=== PATIENT | female | born 1950 | race Caucasian/White ===

== ENCOUNTER 2021-11-04 16:52 | Observation (INO) ==
[2021-11-04 17:36] LABS: Basophils % 0.7 %; Eosinophils # 0.1 K/mcL (0.0-0.6); Eosinophils % 0.8 %; Hematocrit 36.5 % (35.3-44.9); Hemoglobin 11.6 g/dL (11.5-15.4); Immature Granulocytes % 0.3 % (0-4); Lymphocytes # 1.7 K/mcL (0.6-4.6); Lymphocytes % 27.9 %; Mean Corpuscular HGB Conc 31.8 g/dL (31.6-35.5); Mean Corpuscular Hemoglobin 31.4 pg (28.0-33.3); Mean Corpuscular Volume 98.9 fL (83.0-100.0); Mean Platelet Volume 10.4 fL (9.4-12.4); Monocytes # 0.4 K/mcL (0.0-1.3); Monocytes % 6.3 %; Neutrophils # 3.8 K/mcL (1.6-8.9); Platelet Count 204 K/mcL (140-400); Red Blood Count 3.69 M/mcL (3.82-4.97); Red Cell Distribution Width 12.6 % (11.5-14.5); White Blood Count 5.9 K/mcL (4.3-11.1)
[2021-11-04 17:44] LABS: INR 1.9; Prothrombin Time 20.9 Seconds (9.4-12.1)
[2021-11-04 17:47] LABS: Activated Partial Thrombo Time 40.2 Seconds (26.0-36.0)
[2021-11-04 17:57] LABS: Alanine Aminotransferase 7 Units/L (7-52); Albumin 3.6 g/dL (3.5-5.7); Albumin/Globulin Ratio 1.1 (1.1-2.2); Alkaline Phosphatase 45 Units/L (34-104); Aspartate Amino Transferase 11 Units/L (13-39); BUN/Creatinine Ratio 13 (6-26); Bilirubin,Indirect 0.2 mg/dL (0.0-1.0); Bilirubin,Total 0.2 mg/dL (0.3-1.0); Blood Urea Nitrogen 13 mg/dL (8-23); Calcium 8.6 mg/dL (8.6-10.3); Carbon Dioxide 25 mEq/L (23-29); Chloride 108 mEq/L (98-107); Globulin 3.2 g/dL (2.4-3.5); Glucose 88 mg/dL (70-105); Osmolality,Calculated 286 (280-300); Potassium 4.3 mEq/L (3.5-5.1); Sodium 138 mEq/L (136-145); Total Protein 6.8 g/dL (6.4-8.9); eGFR For African Americans > 60 (> 60); eGFR For Non-African Americans 53 (> 60)
[2021-11-04 17:58] LABS: Troponin I < 0.03 ng/mL (< 0.04)
[2021-11-04 18:12] LABS: Influenza A PCR Negative (Negative); Influenza B PCR Negative (Negative); Resp. Syncytial Virus PCR Negative (Negative); SARS-CoV-2 by PCR (In House) Negative (Negative)
[2021-11-04] MEDS ORDERED: Perflutren Lipid Microsphere 1.3 ML in 0.9 % Sodium Chloride 8.7 ML IVP PRN (22:09)
[2021-11-04] MEDS ORDERED: Ondansetron 4 MG/2 ML VIAL IVP PRN (22:10)
[2021-11-04] MEDS ORDERED: Acetaminophen 325 MG TABLET PO PRN (22:10)
[2021-11-04] MEDS ORDERED: Naloxone 0.4 MG/ML INJ IVP PRN (22:10)
[2021-11-04] MEDS ORDERED: Nitroglycerin 0.4 MG TAB.SUBL SL PRN (22:13)
[2021-11-04] MEDS ORDERED: Morphine Sulfate 2 MG/ML SYRINGE IVP PRN (22:36)
[2021-11-05 06:16] LABS: Hematocrit 33.7 % (35.3-44.9); Hemoglobin 11.3 g/dL (11.5-15.4); Mean Corpuscular HGB Conc 33.5 g/dL (31.6-35.5); Mean Corpuscular Hemoglobin 32.6 pg (28.0-33.3); Mean Corpuscular Volume 97.1 fL (83.0-100.0); Platelet Count 200 K/mcL (140-400); Red Blood Count 3.47 M/mcL (3.82-4.97); Red Cell Distribution Width 12.6 % (11.5-14.5); White Blood Count 5.6 K/mcL (4.3-11.1)
[2021-11-05 06:25] LABS: INR 1.2; Prothrombin Time 13.7 Seconds (9.4-12.1)
[2021-11-05] MEDS ORDERED: Regadenoson 0.4 MG/5 ML SYRINGE IVP ONE ×2 (06:27→12:29)
[2021-11-05 06:28] LABS: Activated Partial Thrombo Time 32.4 Seconds (26.0-36.0)
[2021-11-05 06:36] LABS: BUN/Creatinine Ratio 11 (6-26); Blood Urea Nitrogen 11 mg/dL (8-23); Calcium 8.2 mg/dL (8.6-10.3); Carbon Dioxide 24 mEq/L (23-29); Chloride 109 mEq/L (98-107); Chol/HDL Ratio 2.5 (0-4.9); Cholesterol 166 mg/dL (< 200); Glucose 89 mg/dL (70-105); HDL Cholesterol 66 mg/dL (40-59); LDL Cholesterol,Calculated 58 mg/dL (< 100); Osmolality,Calculated 285 (280-300); Sodium 138 mEq/L (136-145); Triglycerides 209 mg/dL (< 150); eGFR For African Americans > 60 (> 60); eGFR For Non-African Americans 56 (> 60)
[2021-11-05 06:50] LABS: Thyroid Stimulating Hormone 3.392 mcIU/mL (0.340-5.600)
[2021-11-05 08:49] LABS: Folate > 22.3 ng/mL (3.0-16.0); Vitamin B12 536 pg/mL (250-1100)
[2021-11-05 10:32] LABS: Vitamin D 25 Hydroxy 26 ng/mL (30-80)
[2021-11-05 11:08] VITALS: BP 114/74; PULSE 84; TEMP 98.3; O2SAT 98
[2021-11-05 16:07] LABS: Adenovirus Not Detected (Not Detect); Bordetella Pertussis Not Detected (Not Detect); Chlamydophila pneumoniae Not Detected (Not Detect); Coronavirus 229E Not Detected (Not Detect); Coronavirus HKU1 Not Detected (Not Detect); Coronavirus NL63 Not Detected (Not Detect); Coronavirus OC43 Not Detected (Not Detect); Human Metapneumovirus Not Detected (Not Detect); Human Rhinovirus/Enterovirus Not Detected (Not Detect); Influenza A Subtype 2009 H1 Not Detected (Not Detect); Influenza B Not Detected (Not Detect); Mycoplasma pneumoniae Not Detected (Not Detect); Parainfluenza Virus 1 Not Detected (Not Detect); Parainfluenza Virus 2 Not Detected (Not Detect); Parainfluenza Virus 3 Not Detected (Not Detect); Parainfluenza Virus 4 Not Detected (Not Detect); Respiratory Syncytial Virus Not Detected (Not Detect); SARS-CoV-2 Not Detected (Not Detect)
[2021-11-05] MEDS ORDERED: *HR* Rivaroxaban 10 MG TABLET PO SCH (17:00)
== END 2021-11-05 17:07 | disposition home or self-care (01) ==
LOC: 2ANU 16:52 → EMEROOARM 16:52 → SUATTDRO 19:29 → 2ANU 19:54
PROVIDERS: ADMIT Internal Medicine; ATTEND Internal Medicine

== ENCOUNTER 2022-08-16 17:28 | Observation (INO) ==
[2022-08-16] MEDS ORDERED: Iopamidol - 370 500 ML MLS IVP ONE (19:26)
[2022-08-16 19:51] LABS: Basophils % 0.8 %; Eosinophils % 0.8 %; Hematocrit 35.1 % (35.3-44.9); Hemoglobin 11.5 g/dL (11.5-15.4); Immature Granulocytes % 0.2 % (0-4); Lymphocytes # 1.7 K/mcL (0.6-4.6); Lymphocytes % 34.4 %; Mean Corpuscular HGB Conc 32.8 g/dL (31.6-35.5); Mean Corpuscular Hemoglobin 31.1 pg (28.0-33.3); Mean Corpuscular Volume 94.9 fL (83.0-100.0); Mean Platelet Volume 10.2 fL (9.4-12.4); Monocytes # 0.3 K/mcL (0.0-1.3); Monocytes % 5.4 %; Neutrophils # 2.9 K/mcL (1.6-8.9); Platelet Count 159 K/mcL (140-400); Red Cell Distribution Width 12.8 % (11.5-14.5); Segmented Neutrophils % 58.4 %
[2022-08-16 20:03] LABS: INR 1.2; Prothrombin Time 13.6 Seconds (9.4-12.1)
[2022-08-16 20:06] LABS: Activated Partial Thrombo Time 31.6 Seconds (26.0-36.0)
[2022-08-16 20:17] LABS: Calcium 8.5 mg/dL (8.6-10.3); Troponin I 0.08 ng/mL (< 0.04)
[2022-08-16] MEDS ORDERED: Melatonin 3 MG TABLET PO PRN (21:31)
[2022-08-16] MEDS ORDERED: Ondansetron ODT 4 MG TAB.RAPDIS SL PRN (21:31)
[2022-08-16] MEDS ORDERED: Naloxone 0.4 MG/ML INJ IVP PRN (21:31)
[2022-08-16] MEDS ORDERED: *HR* Heparin 5,000 UNIT/ML VIAL IVP ONE (22:46)
[2022-08-16] MEDS ORDERED: *HR* Heparin 5,000 UNIT/ML VIAL IVP PRN ×2 (22:46)
[2022-08-16] MEDS ORDERED: Aspirin 325 MG TABLET PO ONE (22:46)
[2022-08-16] MEDS ORDERED: Benzonatate 100 MG CAPSULE PO PRN (22:47)
[2022-08-16] MEDS ORDERED: Heparin 25,000UNIT/250ML 1/2NS 25,000 UNIT/250 ML IV.SOLN IVC SCH (23:00)
[2022-08-16] MEDS: MethylPREDNISolone 40 MG/ML VIAL IVP SCH (23:43)
[2022-08-17 00:44] LABS: Influenza A PCR Negative (Negative); Influenza B PCR Negative (Negative); Resp. Syncytial Virus PCR Negative (Negative)
[2022-08-17 00:45] LABS: SARS-CoV-2 by PCR (In House) Negative (Negative)
[2022-08-17 01:51] LABS: Hematocrit 32.5 % (35.3-44.9); Hemoglobin 10.7 g/dL (11.5-15.4); Mean Corpuscular HGB Conc 32.9 g/dL (31.6-35.5); Mean Corpuscular Hemoglobin 30.9 pg (28.0-33.3); Mean Corpuscular Volume 93.9 fL (83.0-100.0); Platelet Count 158 K/mcL (140-400); Red Blood Count 3.46 M/mcL (3.82-4.97); Red Cell Distribution Width 12.6 % (11.5-14.5); White Blood Count 4.9 K/mcL (4.3-11.1)
[2022-08-17 02:09] LABS: INR 1.3; Prothrombin Time 14.4 Seconds (9.4-12.1)
[2022-08-17 02:11] LABS: Calcium 8.5 mg/dL (8.6-10.3); Heparin anti-factor XA UFH 1.75 IU/mL (0.30-0.70); Magnesium 1.9 mg/dL (1.6-2.6); Phosphorous 3.1 mg/dL (2.7-4.5); Potassium 3.6 mEq/L (3.5-5.1); Troponin I 0.09 ng/mL (< 0.04)
[2022-08-17] MEDS: Ipratropium/Albuterol Neb 3 ML IH SCH ×3 (04:53→15:15)
[2022-08-17] MEDS ORDERED: *HR* OxyCODONE Immed Rel 5 MG TABLET PO ONE (06:07)
[2022-08-17] MEDS ORDERED: Finasteride 5 MG TABLET PO SCH (09:00)
[2022-08-17] MEDS ORDERED: traZODone 50 MG TABLET PO SCH (09:00)
[2022-08-17] MEDS ORDERED: Venlafaxine XR (24 HR) 75 MG CAP.ER.24H PO SCH (09:00)
[2022-08-17] MEDS ORDERED: Aspirin 81 MG TAB.CHEW PO SCH (09:00)
[2022-08-17] MEDS: MethylPREDNISolone 40 MG/ML VIAL IVP SCH ×2 (09:12→16:34)
[2022-08-17] MEDS ORDERED: Heparin 25,000UNIT/250ML 1/2NS 25,000 UNIT/250 ML IV.SOLN IVC SCH (11:31)
[2022-08-17 11:54] VITALS: TEMP 97.8
[2022-08-17 15:36] VITALS: BP 114/65; PULSE 88; O2SAT 96
[2022-08-17] MEDS ORDERED: QUEtiapine Fumarate 100 MG TABLET PO SCH (21:00)
== END 2022-08-17 18:00 | disposition home or self-care (01) ==
LOC: EMEROOARM 17:28 → 3BNU 17:28 → SUATTDRO 21:51 → 3BNU 22:04
PROVIDERS: ADMIT Internal Medicine; ATTEND Internal Medicine